=== PATIENT | male | born 1985 | race Hispanic/Latino ===

== ENCOUNTER 2018-04-08 15:38 | Emergency (ER) | payer SELFPAY ==
[2018-04-08] MEDS ORDERED: Adacel (T-DAP) 0.5 ML VIAL ONE (16:05)
[2018-04-08] MEDS ORDERED: Lidocaine 1% (PF) 30 ML VIAL ONE (16:17)
[2018-04-08] MEDS ORDERED: Bacitracin Zinc 1 Packet ONE (16:34)
== END 2018-04-08 16:40 | disposition home or self-care (01) ==
LOC: ERS 15:38
DX: S61.213A Laceration without foreign body of left middle finger without damage to nail, initial encounter (principal); S61.215A Laceration without foreign body of left ring finger without damage to nail, initial encounter; F17.210 Nicotine dependence, cigarettes, uncomplicated; W26.0XXA Contact with knife, initial encounter
CPT/HCPCS: 12002; 90471; 90715; J2001